=== PATIENT | male | born 1960 | race Hispanic/Latino ===

== ENCOUNTER → 2017-08-24 | Outpatient (CLI) | payer MEDICARE | LOC: RAH 10:00 | PROVIDERS: ATTEND Internal Medicine Gastroenterology | DX: R13.12 Dysphagia, oropharyngeal phase (principal); R63.3 Feeding difficulties; R10.33 Periumbilical pain | CPT/HCPCS: 74230; 92611 ==

== ENCOUNTER → 2018-12-30 | Outpatient (CLI) | payer MEDICARE ==
[~2018-12-30] MED LIST: ASPI-555 PO; ATOR40TA69 PO; GABA300C PO; LORA10TA7 PO; LOSA1TAB2 PO; METO25TA6 PO; POTA20TA12 PO; PROC10TA13 PO; SERT50TA12 PO; SITA100T12 PO; TICA90TA PO
== END | disposition home or self-care (01) ==
LOC: SHCH 13:09
PROVIDERS: ATTEND Internal Medicine Cardiovascular Disease
DX: I25.5 Ischemic cardiomyopathy (principal)
CPT/HCPCS: 93306

== ENCOUNTER → 2022-05-20 | Outpatient (CLI) | payer OTHER ==
[~2022-05-20] MED LIST changes: -ASPI-555 PO; +ASPI-556 PO; +LOSA-422 PO; -LOSA1TAB2 PO; +POTA-192 PO; -POTA20TA12 PO; +SERT-439 PO; -SERT50TA12 PO
== END | disposition home or self-care (01) ==
LOC: RAH 07:38
PROVIDERS: ATTEND Internal Medicine Gastroenterology
DX: K21.9 Gastro-esophageal reflux disease without esophagitis (principal); R10.10 Upper abdominal pain, unspecified
CPT/HCPCS: 76700

== ENCOUNTER → 2022-07-15 | Outpatient (CLI) | payer OTHER | END | disposition home or self-care (01) | LOC: SHCH 12:38 | PROVIDERS: ATTEND Internal Medicine Cardiovascular Disease | DX: I25.10 Atherosclerotic heart disease of native coronary artery without angina pectoris (principal); R20.2 Paresthesia of skin; Z95.5 Presence of coronary angioplasty implant and graft | CPT/HCPCS: 93880 ==

== ENCOUNTER → 2022-10-26 | Outpatient (CLI) | payer OTHER | END | disposition home or self-care (01) | LOC: RAH 07:41 | PROVIDERS: ATTEND Physical Medicine & Rehabilitation | DX: M47.22 Other spondylosis with radiculopathy, cervical region (principal) | CPT/HCPCS: 72141 ==

== ENCOUNTER 2024-06-24 02:13 | Emergency (ER) | payer OTHER, MEDICARE ==
[~2024-06-24] VITALS: Ht 167.6 cm; Wt 89.4 kg
[~2024-06-24 02:13] MED LIST changes: +PROC-3 PO; -PROC10TA13 PO
[2024-06-24 03:03] LABS: CREATININE 1.2 mg/dL (0.5-1.3); POTASSIUM 3.3 mmol/L (3.5-5.1)
[2024-06-24 03:09] LABS: BASOPHILS # (AUTO) 0.01 K/uL (0.00-0.20); BASOPHILS % (AUTO) 0.1 % (0.0-5.0); EOSINOPHILS % (AUTO) 1.2 % (0.0-8.0); HEMATOCRIT 42.7 % (42-54); IMMATURE GRANULOCYTE ABSOLUTE 0.02 K/uL (0-1); LYMPHOCYTES % (AUTO) 24.8 % (21.0-51.0); MEAN CORPUSCULAR HEMOGLOBIN 29.6 pg (27.0-33.0); MEAN CORPUSCULAR VOLUME 87.1 fL (79-99); MONOCYTES # (AUTO) 0.7 K/uL (0.1-1.0); MONOCYTES % (AUTO) 9.2 % (3.0-13.0); NEUTROPHILS # (AUTO) 5.2 K/uL (1.8-7.7); NEUTROPHILS % (AUTO) 64.5 % (40.0-77.0); PLATELET COUNT (AUTO) 249 K/uL (130-400); RED CELL DISTRIBUTION WIDTH 12.9 % (11.0-15.5)
[2024-06-24 03:12] LABS: B-TYPE NATRIURETIC PEPTIDE 39 pg/mL (0-100)
[2024-06-24 05:13] VITALS: BP 123/83; PULSE 62; RESP 16; TEMP 98.5; O2SAT 96
[2024-06-24 05:14] LABS: APPEARANCE,URINE CLEAR (CLEAR); BILIRUBIN,URINE NEGATIVE (NEGATIVE); COLOR,URINE LIGHT-YELLOW (YELLOW); GLUCOSE, URINE (UA) >=1000 mg/dL (NEGATIVE); KETONES,URINE NEGATIVE (NEGATIVE); LEUKOCYTE ESTERASE ,URINE NEGATIVE Leu/uL (NEGATIVE); MUCUS,URINE RARE LPF (None Seen); NITRATE,URINE NEGATIVE (NEGATIVE); OCCULT BLOOD,URINE NEGATIVE (NEGATIVE); PH,URINE 6.5 (5.0-8.0); PROTEIN,URINE NEGATIVE (NEGATIVE); SQUAMOUS EPITHELIAL CELL,UR RARE /HPF (0-2); UROBILINOGEN,URINE 0.2 mg/dL (0.2-1.0)
--- NOTE | 2024-06-24 06:27 | ERN ---
General Chief Complaint: Chest Pain Stated Complaint: HTN,CHEST PAIN Source: patient History of Present Illness Initial Comments Patient is a 64-year-old male with a past medical history of coronary artery disease and hypertension presenting to the emergency department with chest pain that started at approximately 1:30 a.m. today. The patient states he was sleeping when he was awoken by the chest pain. He does report similar episodes in the past. He is followed by medical insurance biller Dr. Pérez. Patient states he checked his blood pressure and it was 170 systolic so he decided to report to the ER for further evaluation. Allergies: Coded Allergies: No Known Drug Allergies (Verified Allergy, Unknown, 12/01/17) Home Meds Active Scripts Potassium Chloride (K-Dur/Klor-Con) 20 Meq Ertab, 20 MEQ PO DAILY, #30 TAB.EC 1 Refill Prov:SCARLETT GALICIA [facility] 12/03/17 Ticagrelor (Brilinta) 90 Mg Tablet, 90 MG PO BID, #60 TAB 2 Refills Prov:SCARLETT GALICIA [facility] 12/03/17 Losartan/Hydrochlorothiazide (Hyzaar 50-12.5 Tablet) 1 Each Tablet, 1 TAB PO DAILY, #30 TAB 3 Refills Prov:SCARLETT GALICIA [facility] 12/03/17 Atorvastatin Calcium (LIPITOR) 40 Mg Tablet, 40 MG PO HS, #30 TAB 2 Refills Prov:SCARLETT GALICIA [facility] 12/03/17 Reported Medications Aspirin (Aspir 81) 81 Mg Tablet.dr, 81 MG PO DAILY, TAB 12/01/17 Sertraline HCl (Sertraline HCl) 50 Mg Tablet, 50 MG PO DAILY, TAB 12/01/17 Metoprolol Tartrate (Metoprolol Tartrate) 25 Mg Tablet, 25 MG PO BID, TAB 12/01/17 Gabapentin (Neurontin) 300 Mg Capsule, 300 MG PO TID, CAP 12/01/17 Loratadine (Loratadine) 10 Mg Tablet, 10 MG PO DAILY, TAB 12/01/17 Sitagliptin Phosphate (Januvia) 100 Mg Tablet, 100 MG PO DAILY, TAB 12/01/17 Prochlorperazine Maleate (Prochlorperazine Maleate) 10 Mg Tablet, 10 MG PO TIDP PRN for DIZZINESS, TAB 7/11/18 Past Medical History Past Medical History: Diabetes-Type II, High Cholesterol, Hypertension Past Surgical History: Other Surgical History Other: NECK ROS Dictation CONSTITUTIONAL: Negative except for HPI HEAD/FACE: Negative except for HPI EENT: Negative except for HPI RESPIRATORY: Negative except for HPI GASTROINTESTINAL/ABDOMINAL: Negative except for HPI GENITOURINARY: Negative except for HPI MUSCULOSKELETAL: Negative except for HPI INTEGUMENTARY: Negative except for HPI NEUROLOGICAL/PSYCH: Negative except for HPI HEMATOLOGIC/LYMPHATIC: Negative except for HPI All Systems Negative, Except as noted above. 13 point review of systems assessed and all negative except for above. Physical Exam Physical Exam Dictation Vital Signs reviewed General Appearance: Alert, oriented x 3, no acute distress, well developed, nourished. Head and Face: non-traumatic. Eyes: PERRL, pink conjunctivas, eyelid no trauma, anterior chamber with arcus senilis. Ears: Pinnas intact and no signs of trauma or erythema ear canals clear and no discharge TM no erythema Nose: No discharge, no bleeding. Oropharynx: Mouth normal, tongue pink, pharynx clear,no erythema, tonsils no exudates, no abscesses noted, mucous membrane moist Neck: Supple, non-tender, no thyromegaly, no masses, no JVD, no bruits Breast:Deferred Chest:No tenderness, no crepitus, no paradoxical movement, no retractions Lungs:Clear, well-ventilated, symmetric, no rales, no wheezing, no rhonchi, no stridor, good breath sounds bilaterally Heart: Regular rate, regular rhythm, no murmur, no gallops Vascular: no peripheral edema, Abdomen: Soft, positive bowel sounds, nondistended, no guarding, nontender, no rebound, no masses no hepatomegaly, no splenomegaly, no Nation's sign, no hernias. Rectal: Deferred Genital: Deferred Neurological: Normal speech, motor function intact, sensory function intact Musculoskeletal: Neck nontender, full range of motion, back nontender, full range of motion, Extremities: nontender, full range of motion Skin: Color pink, dry, no turgor, no rash, no lacerations, no abrasions, no contusions. Lymphatic: Deferred Results Laboratory and Microbiology Lab and Micro Result Laboratory Tests Test 06/24/24 02:39 06/24/24 03:06 2/1/25 04:47 06/24/24 05:06 White Blood Count 8.0 K/uL (4.8-10.8) Red Blood Count 4.90 MIL/uL (4.50-6.20) Hemoglobin 14.5 g/dL (14.0-18.0) Hematocrit 42.7 % (42-54) Mean Corpuscular Volume 87.1 fL (79-99) Mean Corpuscular Hemoglobin 29.6 pg (27.0-33.0) Mean Corpuscular Hemoglobin Concent 34.0 g/dL (32.0-36.0) Red Cell Distribution Width 12.9 % (11.0-15.5) Platelet Count 249 K/uL (130-400) Mean Platelet Volume 10.5 fL (7.5-10.5) Immature Granulocyte % (Auto) 0.2 % (0-1) Neutrophils (%) (Auto) 64.5 % (40.0-77.0) Lymphocytes (%) (Auto) 24.8 % (21.0-51.0) Monocytes (%) (Auto) 9.2 % (3.0-13.0) Eosinophils (%) (Auto) 1.2 % (0.0-8.0) Basophils (%) (Auto) 0.1 % (0.0-5.0) Neutrophils # (Auto) 5.2 K/uL (1.8-7.7) Lymphocytes # (Auto) 2.0 K/uL (1.0-4.8) Monocytes # (Auto) 0.7 K/uL (0.1-1.0) Eosinophils # (Auto) 0.10 K/uL (0.00-0.70) Basophils # (Auto) 0.01 K/uL (0.00-0.20) Absolute Immature Granulocyte (auto 0.02 K/uL (0-1) Nucleated Red Blood Cells 0.0 % (0.0-0.19) Sodium Level 140 mmol/L (136-145) Potassium Level 3.3 mmol/L (3.5-5.1) L Chloride Level 103 mmol/L (101-111) Carbon Dioxide Level 33 mmol/L (21-32) H Blood Urea Nitrogen 16 mg/dL (7-18) Creatinine 1.2 mg/dL (0.5-1.3) Glomerular Filtration Rate Calc 67 mL/min (>90) Random Glucose 112 mg/dL (70-105) H Total Calcium 8.9 mg/dL (8.5-10.1) Total Creatine Kinase 101 U/L (21-232) # Troponin I High Sensitivity 10 ng/L (4-75) 10 ng/L (4-75) B-Type Natriuretic Peptide 39 pg/mL (0-100) Troponin I < 0.05 ng/mL (0.00-0.05) Urine Color LIGHT-YELLOW (YELLOW) Urine Appearance CLEAR (CLEAR) Urine pH 6.5 (5.0-8.0) Urine Specific [place] 1.027 (1.001-1.031) Urine Protein NEGATIVE mg/dL (NEGATIVE) Urine Glucose (UA) >=1000 mg/dL (NEGATIVE) H Urine Ketones NEGATIVE mg/dL (NEGATIVE) Urine Occult Blood NEGATIVE (NEGATIVE) Urine Nitrate NEGATIVE (NEGATIVE) Urine Bilirubin NEGATIVE mg/dL (NEGATIVE) Urine Urobilinogen 0.2 mg/dL (0.2-1.0) Urine Leukocyte Esterase NEGATIVE Aga/uL Urine RBC 6-10 /HPF (0-1) H Urine WBC 2-5 /HPF (0-1) H Urine Squamous Epithelial Cells RARE /HPF (0-2) Urine Bacteria None /HPF (None Seen) Labs Reviewed?: Yes MDM MDM: Differential diagnosis: ACS, pleurisy, pneumonia, pneumothorax There are no social concerns with this patient. Prescription drug management Prescriptions will include: None Medical management and examination interpretation discussions were had by me with other qualified healthcare professionals as indicated for the patient's care. ED Course Orders Procedure Category Date Status Time Vital Signs Per CPOE 06/24/24 Transmitted Routine 02:17 B-Type Natriuretic LAB 06/24/24 Complete Peptide 02:17 Chest 1vw RAD 06/24/24 Taken 02:17 12 Lead Ekg Tracing- EKG 06/24/24 Logged Technical 02:17 Oxygen By Nc/Pulse Ox CPOE 06/24/24 Transmitted 02:17 Maintain Iv CPOE 06/24/24 Transmitted 02:17 Iv Insertion CPOE 06/24/24 Transmitted 02:17 Cardiac Monitoring CPOE 06/24/24 Transmitted 02:17 Pulse Oximetry With CPOE 06/24/24 Transmitted Vs And Prn 02:17 Cbc With Differential LAB 2/1/25 Complete 02:17 Activity: Br W/Brp CPOE 06/24/24 Transmitted With Assist 02:17 Creatine Kinase, Total LAB 06/24/24 Complete 02:17 Troponin I High LAB 06/24/24 Complete Sensitivity 02:17 Troponin Poc Order LAB 06/24/24 Complete Only 02:17 Bedside Troponin-I LAB.ER 06/24/24 In Process (Poc) 02:17 Basic Metabolic Panel LAB 06/24/24 Complete 02:17 Troponin I High LAB 06/24/24 Complete Sensitivity 04:58 Urinalysis LAB 06/24/24 Complete W/Microscopic 04:47 Vital Signs Date Time Temp Pulse Resp B/P (MAP) Pulse Ox O2 Delivery O2 Flow Rate FiO2 06/24/24 05:13 98.4 62 16 123/83 96 Room Air* 0 21 06/24/24 03:21 65 17 130/76 97 Room Air* 0 06/24/24 02:15 96.8 70 16 136/79 97 Room Air HEART Score Response (Comments) Value History: Low suspicion (0) 0 EKG: Normal 0 Age: 45-65yrs (+1) 1 Risk Factors: 1-2 risk factors (+1) 1 Initial Troponin: Normal limit (0) 0 HEART Score Risk: Low Risk for MACE (1-3) Total 2 DX & DISP Disposition: Discharge Departure Impression: Primary Impression: Non-cardiac chest pain Condition: Stable Additional Instructions: Your blood work today is unremarkable. Your cardiac enzymes are negative. Your chest x-ray does not show any acute abnormalities. Your EKG does not show any evidence of a heart attack. Please follow up with your primary care doctor and medical insurance biller for further evaluation. Return to the ER for any new or worsening symptoms. Referrals: SELF,REFERRAL (PCP) Time of Disposition: 06:26 I have reviewed the case, and I agree with, Diagnosis and Plan I performed the substantive portion of the visit. I have reviewed and perso good made and approve the management plan that is documented in the note by myself or the ALLI. I acknowledge for responsibility for the patient's management plan. REBEKAH CAMARA Jun 24, 2024 06:26
--- NOTE | 2024-06-24 06:37 | EKG ---
[facility] Test Date: 2024-06-24 Test Time: 02:52:17 Pat Name: ALICE ODELL Department: ED Room: Gender: M Pricing Lead: [id number] : 1960 Requested By: MARIA ISABEL MEJIA Order Number: [id number] Reading MD: Varinder Angulo Measurements Intervals [place] Rate: 57 P: 8 WI: 184 QRS: -53 QRSD: 117 T: -3 QT: 446 QTc: 435 Interpretive Statements Sinus rhythm Nonspecific IVCD with LAD Inferior infarct, old Compared to ECG 12/02/2017 04:43:05 Intraventricular conduction delay now present Left-axis deviation no longer present Myocardial infarct finding still present Electronically Signed On 06-24-2024 17:17:58 DIRECTOR OPERATING ROOM by Varinder Angulo Please click the below link to view image of tracing.
--- NOTE | 2024-06-24 08:54 | HMCIMG ---
Exam Type: CHEST 1VW Clinical Information: CHEST PAIN Comparison: None Findings: The lungs are clear of infiltrates. The heart is enlarged. Bony and soft tissue structures of the chest wall are unremarkable. IMPRESSION: Cardiomegaly. Clear lungs.
== END 2024-06-24 06:46 | disposition home or self-care (01) ==
LOC: EDH 02:13
DX: R07.89 Other chest pain (principal); E11.9 Type 2 diabetes mellitus without complications; E78.00 Pure hypercholesterolemia, unspecified; I10 Essential (primary) hypertension; Z79.02 Long term (current) use of antithrombotics/antiplatelets; Z79.82 Long term (current) use of aspirin; Z79.84 Long term (current) use of oral hypoglycemic drugs; Z79.899 Other long term (current) drug therapy
CPT/HCPCS: 36415; 71045; 80048; 81001; 82550; 83880; 84484; 85025; 93005; 99285

== ENCOUNTER → 2024-09-07 | Outpatient (CLI) | payer OTHER, MEDICARE ==
[2024-09-07 08:23] LABS: BASOPHILS # (AUTO) 0.02 K/uL (0.00-0.20); BASOPHILS % (AUTO) 0.2 % (0.0-5.0); EOSINOPHILS # (AUTO) 0.09 K/uL (0.00-0.70); EOSINOPHILS % (AUTO) 1.1 % (0.0-8.0); HEMATOCRIT 44.6 % (42-54); IMMATURE GRANULOCYTE ABSOLUTE 0.02 K/uL (0-1); LYMPHOCYTES # (AUTO) 1.7 K/uL (1.0-4.8); LYMPHOCYTES % (AUTO) 19.8 % (21.0-51.0); MEAN CORPUSCULAR HEMOGLOBIN 29.5 pg (27.0-33.0); MEAN CORPUSCULAR HGB CONC 33.2 g/dL (32.0-36.0); MONOCYTES # (AUTO) 0.6 K/uL (0.1-1.0); MONOCYTES % (AUTO) 7.1 % (3.0-13.0); NEUTROPHILS # (AUTO) 6.1 K/uL (1.8-7.7); NEUTROPHILS % (AUTO) 71.6 % (40.0-77.0); PLATELET COUNT (AUTO) 161 K/uL (130-400); RED BLOOD CELL COUNT(AUTO) 5.01 MIL/uL (4.50-6.20); RED CELL DISTRIBUTION WIDTH 13.7 % (11.0-15.5); WHITE BLOOD COUNT (AUTO) 8.6 K/uL (4.8-10.8)
[2024-09-07 08:38] LABS: CREATININE 0.9 mg/dL (0.5-1.3); POTASSIUM 3.7 mmol/L (3.5-5.1)
== END | disposition home or self-care (01) ==
LOC: LAB 07:56
PROVIDERS: ATTEND Urology
DX: R31.29 Other microscopic hematuria (principal)
CPT/HCPCS: 36415; 80048; 85025

== ENCOUNTER → 2024-09-15 | Outpatient (CLI) | payer OTHER, MEDICARE ==
[~2024-09-15] MED LIST changes: +IOHEXOL 350 MG/ML 100ML INFUS..BTL IV ONE
--- NOTE | 2024-09-15 11:24 | HMCIMG ---
Exam Type: CT ABDOMEN AND PELVIS WITH ORAL AND IV CONTRAST Clinical Information: Other microscopic hematuria Comparison: Contrast: 75 cc's Omnipaque 350 IV, no complications or adverse reactions. Technique: Routine helical scanning at 5mm collimation through the abdomen and pelvis was performed after oral and before and after IV contrast administration. Arterial, venous, and 7 minutes renal delay postcontrast series were obtained for evaluation of renal excretion and collecting systems and urinary bladder. Surface rendering three-dimensional reconstructions of the urinary tract performed as well. CT Dose Index (CTDI): mGy Findings: Findings: The lung bases are clear. The kidneys are unremarkable except for small bilateral simple cysts. No evidence of nephro or ureterolithiasis is found. No hydronephrosis or ureteral dilatation is seen. The urinary bladder is also unremarkable in. Post contrast. No stones are identified. There is no obstruction. No tumor. The stomach is unremarkable. It shows no distention. No evidence of ulceration is seen. There is no inflammation. No gastric wall thickening is noted to suggest tumor. The liver is unremarkable. It shows no focal masses. There is no intra or extrahepatic bile duct dilatation. The spleen shows normal size and attenuation. It is not enlarged. The pancreas shows normal appearance without masses, atrophy, or calcifications, or duct prominence. There is no peripancreatic fluid. There is cholelithiasis. There is no evidence of gallbladder wall thickening or pericholecystic stranding.to suggest acute or chronic cholecystitis. The adrenals are normal. No masses are seen. The small and large bowel and pelvic viscera are unremarkable. The appendix is unremarkable. There is no retroperitoneal lymphadenopathy or lymphadenopathy elsewhere throughout the abdomen and pelvis. The aorta and inferior vena cava and other vascular structures are unremarkable. The bony structures unremarkable for the patient's age. The prostate is significantly enlarged. The abdominopelvic wall soft tissue structures and muscular compartments are unremarkable. IMPRESSION: NEGATIVE CT SCAN OF THE ABDOMEN AND PELVIS WITH ORAL AND IV CONTRAST. Diverticulosis. Automated exposure control and adaptive statistical iterative reconstruction were utilized as dose reduction techniques.
== END | disposition home or self-care (01) ==
LOC: RAH 07:22
PROVIDERS: ATTEND Urology
DX: K80.20 Calculus of gallbladder without cholecystitis without obstruction (principal); R31.29 Other microscopic hematuria; N40.0 Benign prostatic hyperplasia without lower urinary tract symptoms; K57.90 Diverticulosis of intestine, part unspecified, without perforation or abscess without bleeding
CPT/HCPCS: 74178; Q9967

== ENCOUNTER → 2025-01-29 | Outpatient (CLI) | payer OTHER, MEDICAID ==
[~2025-01-29] MED LIST changes: -IOHEXOL 350 MG/ML 100ML INFUS..BTL IV ONE
[2025-01-29 08:11] LABS: ASPARTATE AMINOTRANSFERASE 17.0 U/L (10-37); CREATININE 0.8 mg/dL (0.5-1.3); GLOMERULAR FILTR. RATE CALC 98.0 mL/min (>90); GLUCOSE,RANDOM 104.0 mg/dL (70-105); SODIUM SERUM 138.0 mmol/L (136-145); TOTAL PROTEIN, SERUM 7.0 g/dL (6.0-8.3); UREA NITROGEN, BLOOD 20.0 mg/dL (7-18)
--- NOTE | 2025-01-29 15:21 | HMCSR ---
APPROVED REPORT EXAM: Two-dimensional and M-mode echocardiogram with Doppler and color Doppler. INDICATION ICD: I10, R42 2D Dimensions RVDd4.1 cmLVEF(%)40.7 (>50%)LVED Vol(simp.)141.7 mL IVSd0.9 (0.7-1.1cm)FS(%)20 %LVES Vol(simp.)64.4 mL LVDd5.4 (3.8-5.6cm)LA (2D)4.6 (1.6-4.0cm)LVEF(%, simp.)55 % PWd0.9 (0.7-1.1cm)Ao Root(2D)3.3 (2.0-3.7cm) IVSs1.5 cmLVOT diam2.2 (1.8-2.4cm) LVDs4.3 (2.5-4.0cm) PWs0.7 cm M-Mode Dimensions EPSS1.3 cm LA (MM)4.6 (1.6-4.0cm) Ao Root(MM)2.8 (2.0-3.7cm) Aortic Valve AoV Vmax1.5 m/Prashant Peak GR8.8 mmHgLVOT Vmax1.0 m/s AoV VTI0.3 mAo Mean GR5.3 mmHgLVOT VTI0.26 m CIERA (VMAX)2.56 cm2AVA (VTI) 3.1 cm2 Mitral Valve MV E Vmax78.5 cm/sDECEL Objz628 ms MV A Vmax98.7 cm/sP 1/2 T84 ms E/A ratio0.8MVA (PHT)2.6 cm2 TDI E/E' Xtrodq89.1E/E' Rlhpxfn56.7 Medial E' Peak V5.56 cm/sLateral E' Peak V4.70 cm/s Pulmonary Valve PV Vmax1.2 m/sPV VTI0.25 mPV Mean GR3.1 mmHg PV Peak GR5.3 mmHg Tricuspid Valve TR Vmax2.2 m/sRAP (EST) 8 rxPbNHUK13.7 mmHg TR Peak GR20.7 mmHg Left Ventricle The left ventricle is normal size. There is normal LV segmental wall motion. There is normal left iris tricular wall thickness. LVEF is 50-55%. The left ventricular diastolic function is normal. Right Ventricle The right ventricle is borderline dilated. The right ventricular systolic function is normal. Atria The left atrium size is normal. The right atrium is borderline dilated. Aortic Valve The aortic valve is normal in structure. Color-flow jet noted across aortic valve may be indicative o f trivial to mild AI versus possible perimembranous VSD There is no aortic valvular stenosis. Mitral Valve The mitral valve is normal in structure. There is mild mitral valve regurgitation noted. There is no mitral valve stenosis. Tricuspid Valve The tricuspid valve is normal in structure. There is trace of tricuspid valve regurgitation noted. Pulmonic Valve The pulmonary valve is normal in structure. There is no pulmonic valvular regurgitation. Great Vessels The aortic root is normal in size. The IVC is normal in size and collapses <50% with inspiration. Pericardium There is no pericardial effusion. Other Information Quality : Adequate Conclusion LVEF is 50-55%. There is normal LV segmental wall motion.
== END | disposition home or self-care (01) ==
LOC: RAH 07:42
PROVIDERS: ATTEND Family Medicine
DX: I34.0 Nonrheumatic mitral (valve) insufficiency (principal); I10 Essential (primary) hypertension; R42 Dizziness and giddiness
CPT/HCPCS: 36415; 80053; 93306

== ENCOUNTER → 2025-02-01 | Outpatient (CLI) | payer OTHER, MEDICAID ==
[~2025-02-01] MED LIST changes: +IOHEXOL 350 MG/ML 100ML INFUS..BTL IV ONE
--- NOTE | 2025-02-01 11:46 | HMCIMG ---
INDICATION: LLQ PAIN. COMPARISON: None. TECHNIQUE: After obtaining the patient's consent, CT images were obtained without and with non-ionic intravenous contrast material. The study was also obtained with oral contrast.. Numerous low-radiation dose strategies were employed including AEC (Automatic Exposure Control) and individualized BMI-based low dose scan protocols. The exam was performed on a CT scanner that is compliant with the NEMA XR-29 Smart Dose Standard. DICOM Radiation Dose Structured Reporting capability and Dose Check Standard are also features of this scanner. RADIATION DOSE ESTIMATE: CTDIvol (mGy): 28.10 \ DLP (mGy-cm): 1596.00 FINDINGS: LOWER THORAX: Lung bases are clear. Normal cardiac size without pericardial effusion. LIVER: No focal hepatic abnormality. BILIARY: No calcified gallstones. No intra or extrahepatic biliary ductal dilatation. PANCREAS: Normal. No lesion, fluid collection, ductal dilatation, or acute inflammation. SPLEEN: Normal. No enlargement or focal lesion. STOMACH/DUODENUM: Unremarkable. ADRENALS: Normal. No mass or enlargement. KIDNEYS: Normal. No mass, obstruction, or nephrolithiasis. Are small cortical cysts seen in both kidneys. BOWEL/MESENTERY: Normal. No visible mass, obstruction, or bowel wall thickening. There are scattered diverticulosis mostly in the descending and sigmoid colon with no evidence of associated diverticulitis. The bowel isn't well-opacified with oral contrast. AORTA/VASCULAR: No aneurysm. . Mild atherosclerotic disease. PERITONEUM/RETROPERITONEUM: Normal. No mass, ascites or free air. LYMPH NODES: No pathologically enlarged lymph nodes. URINARY BLADDER: Normal. No visible focal wall thickening, lesion, or calculus. PELVIC ORGANS: The prostate and seminal vesicle appears to be normal. There is no mass or free fluid seen in the pelvis. BONES: No acute osseous abnormality. ABDOMINAL WALL/SOFT TISSUES: Normal. No mass or hernia. IMPRESSION: No acute process seen in the CT of the abdomen and pelvis with and without intravenous and oral contrast.
== END | disposition home or self-care (01) ==
LOC: RAH 08:45
PROVIDERS: ATTEND Internal Medicine Gastroenterology
DX: K57.30 Diverticulosis of large intestine without perforation or abscess without bleeding (principal); N28.1 Cyst of kidney, acquired; I25.10 Atherosclerotic heart disease of native coronary artery without angina pectoris; R10.814 Left lower quadrant abdominal tenderness
CPT/HCPCS: 74178; Q9967

== ENCOUNTER → 2025-02-12 | Emergency (ER) | payer OTHER, MEDICAID ==
[~2025-02-12] VITALS: Ht 167.6 cm; Wt 80.7 kg
[~2025-02-12] MED LIST changes: +ASPIRIN 81MG CHEW TAB PO SCH; -IOHEXOL 350 MG/ML 100ML INFUS..BTL IV ONE
--- NOTE | 2025-02-12 02:08 | NUR ---
REPORT TO USHA SMALLWOOD
--- NOTE | 2025-02-12 02:28 | ERN ---
ED Note History of Present Illness Stated Complaint: CP, HTN Chief Complaint: Multiple Complaints Time Seen by MD: 02:21 Time Seen by Midlevel: 02:21 Dictation: The patient is a 65-year-old male with a history of CAD, hypertension who presents to the emergency department with complaints of intermediate left-sided chest pain onset three days ago. Patient reports pain last about a 3-4 hours. Patient also been complaining of elevated blood pressure. Reports highest as in the 140 systolic. Denies any headache or dizziness. Allergies: Coded Allergies: No Known Drug Allergies (Verified Allergy, Unknown, 12/01/17) Home Meds Active Scripts Potassium Chloride (K-Dur/Klor-Con) 20 Meq Ertab, 20 MEQ PO DAILY, #30 TAB.EC 1 Refill Prov:SCARLETT GALICIA [facility] 12/03/17 Ticagrelor (Brilinta) 90 Mg Tablet, 90 MG PO BID, #60 TAB 2 Refills Prov:SCARLETT GALICIA [facility] 12/03/17 Losartan/Hydrochlorothiazide (Hyzaar 50-12.5 Tablet) 1 Each Tablet, 1 TAB PO DAILY, #30 TAB 3 Refills Prov:SCARLETT GALICIA [facility] 12/03/17 Atorvastatin Calcium (LIPITOR) 40 Mg Tablet, 40 MG PO HS, #30 TAB 2 Refills Prov:SCARLETT GALICIA [facility] 12/03/17 Reported Medications Aspirin (Aspir 81) 81 Mg Tablet.dr, 81 MG PO DAILY, TAB 12/01/17 Sertraline HCl (Sertraline HCl) 50 Mg Tablet, 50 MG PO DAILY, TAB 12/01/17 Metoprolol Tartrate (Metoprolol Tartrate) 25 Mg Tablet, 25 MG PO BID, TAB 12/01/17 Gabapentin (Neurontin) 300 Mg Capsule, 300 MG PO TID, CAP 12/01/17 Loratadine (Loratadine) 10 Mg Tablet, 10 MG PO DAILY, TAB 12/01/17 Sitagliptin Phosphate (Januvia) 100 Mg Tablet, 100 MG PO DAILY, TAB 12/01/17 Prochlorperazine Maleate (Prochlorperazine Maleate) 10 Mg Tablet, 10 MG PO TIDP PRN for DIZZINESS, TAB 12/01/17 Past Medical History Past Medical History: Diabetes-Type II, High Cholesterol, Hypertension Surgical History: Other Surgical History Other: NECK, HERNIA, CARDIAC STENTS RN Note Reviewed/Agreed w/PFSH: Yes Review of System Dictation Constitutional: Negative for fever,chills, and weight loss Eyes: Negative for injury, pain,redness, and discharge ENT: Negative for injury,pain or swelling Cardiovascular: Negative for palpitations, and edema positive for chest pain Respiratory: Negative for shortness of breath, cough, and wheezing, Abdomen/GI: Negative for abdominal pain, nausea, vomiting, diarrhea, and constipation Back: Negative for injury and pain : Negative for injury, bleeding and discharge MS/Extremity: Negative for injury and deformity Skin: Negative for rash, and discoloration Neuro: Negative for headache, weakness, numbness, tingling, and seizure Psych: Negative for suicide ideation, homicidal ideation, and hallucinations Initial Vital Sign VS Vital Signs Date Time Temp Pulse Resp B/P (MAP) Pulse Ox O2 Delivery O2 Flow Rate FiO2 02/12/25 02:00 97.9 75 18 138/62 98 Room Air 02/12/25 03:00 0 21 Physical Exam Dictation Vital Signs reviewed General Appearance: Alert, oriented x 3, no acute distress, well developed, nourished. Head and Face: non-traumatic. Eyes: PERRL, pink conjunctivas, eyelid no trauma, anterior chamber with arcus senilis. Ears: Pinnas intact and no signs of trauma or erythema ear canals clear and no discharge TM no erythema Nose: No discharge, no bleeding. Oropharynx: Mouth normal, tongue pink. pharynx clear,no erythema, tonsils no exudates, no abscesses noted, mucous membrane moist Neck: Supple, non-tender, no thyromegaly, no masses, no JVD, no bruits Breast:Deferred Chest:No tenderness, no crepitus, no paradoxical movement, no retractions Lungs:Clear, well-ventilated, symmetric, no rales, no wheezing, no rhonchi, no stridor, good breath sounds bilaterally Heart: Regular rate, regular rhythm, no murmur, no gallops Vascular: no peripheral edema, Abdomen: Soft, positive bowel sounds, nondistended, no guarding, nontender, no rebound, no masses no hepatomegaly, no splenomegaly, no Nation's sign, no hernias. Rectal: Deferred Genital: Deferred Neurological: Normal speech, motor function intact, sensory function intact Musculoskeletal: Neck nontender, full range of motion, back nontender, full range of motion, Extremities: nontender, full range of motion Skin: Color pink, dry, no turgor, no rash, no lacerations, no abrasions, no contusions. Lymphatic: Deferred Results (Laboratory/Radiology) Laboratory/Radiology Laboratory Tests Test 02/12/25 02:43 White Blood Count 10.6 K/uL (4.8-10.8) Red Blood Count 5.08 MIL/uL (4.50-6.20) Hemoglobin 15.5 g/dL (14.0-18.0) Hematocrit 45.5 % (42-54) Mean Corpuscular Volume 89.6 fL (79-99) Mean Corpuscular Hemoglobin 30.5 pg (27.0-33.0) Mean Corpuscular Hemoglobin Concent 34.1 g/dL (32.0-36.0) Red Cell Distribution Width 12.6 % (11.0-15.5) Platelet Count 193 K/uL (130-400) Mean Platelet Volume 10.3 fL (7.5-10.5) Immature Granulocyte % (Auto) 0.4 % (0-1) Neutrophils (%) (Auto) 77.4 % (40.0-77.0) H Lymphocytes (%) (Auto) 13.2 % (21.0-51.0) L Monocytes (%) (Auto) 8.1 % (3.0-13.0) Eosinophils (%) (Auto) 0.8 % (0.0-8.0) Basophils (%) (Auto) 0.1 % (0.0-5.0) Neutrophils # (Auto) 8.2 K/uL (1.8-7.7) H Lymphocytes # (Auto) 1.4 K/uL (1.0-4.8) Monocytes # (Auto) 0.9 K/uL (0.1-1.0) Eosinophils # (Auto) 0.08 K/uL (0.00-0.70) Basophils # (Auto) 0.01 K/uL (0.00-0.20) Absolute Immature Granulocyte (auto 0.04 K/uL (0-1) Nucleated Red Blood Cells 0.0 % (0.0-0.19) Urine Color LIGHT-YELLOW (YELLOW) Urine Appearance CLEAR (CLEAR) Urine pH 5.0 (5.0-8.0) Urine Specific [place] 1.008 (1.001-1.031) Urine Protein NEGATIVE mg/dL (NEGATIVE) Urine Glucose (UA) NEGATIVE mg/dL (NEGATIVE) Urine Ketones NEGATIVE mg/dL (NEGATIVE) Urine Occult Blood SMALL (NEGATIVE) H Urine Nitrate NEGATIVE (NEGATIVE) Urine Bilirubin NEGATIVE mg/dL (NEGATIVE) Urine Urobilinogen 0.2 mg/dL (0.2-1.0) Urine Leukocyte Esterase NEGATIVE Aga/uL Urine RBC 0-1 /HPF (0-1) Urine WBC 0-1 /HPF (0-1) Urine Bacteria None /HPF (None Seen) Sodium Level 140 mmol/L (136-145) Potassium Level 3.6 mmol/L (3.5-5.1) Chloride Level 103 mmol/L (101-111) Carbon Dioxide Level 30 mmol/L (21-32) Blood Urea Nitrogen 15 mg/dL (7-18) Creatinine 0.8 mg/dL (0.5-1.3) Glomerular Filtration Rate Calc 98 mL/min (>90) Random Glucose 147 mg/dL (70-105) H Total Calcium 9.2 mg/dL (8.5-10.1) Total Creatine Kinase 57 U/L (21-232) # Troponin I High Sensitivity 8 ng/L (4-75) Labs Reviewed?: Yes ED Course ED Course Orders Procedure Category Date Status Time Vital Signs Per CPOE 02/12/25 Transmitted Routine 02:02 Chest 1vw RAD 02/12/25 Resulted 02:02 12 Lead Ekg Tracing- EKG 02/12/25 Complete Technical 02:02 Oxygen By Nc/Pulse Ox CPOE 02/12/25 Transmitted 02:02 Maintain Iv CPOE 02/12/25 Transmitted 02:02 Iv Insertion CPOE 02/12/25 Transmitted 02:02 Cardiac Monitoring CPOE 02/12/25 Transmitted 02:02 Pulse Oximetry With CPOE 02/12/25 Transmitted Vs And Prn 02:02 Cbc With Differential LAB 02/12/25 Complete 02:02 Activity: Br W/Brp CPOE 02/12/25 Transmitted With Assist 02:02 Creatine Kinase, Total LAB 02/12/25 Complete 02:02 Troponin I High LAB 02/12/25 Complete Sensitivity 02:02 Urinalysis Profile LAB 02/12/25 Complete 02:02 Basic Metabolic Panel LAB 02/12/25 Complete 02:02 Aspirin 81mg Chew Tab PHA 02/12/25 In Process (Aspirin 81mg Chew 09:00 Current Medications Medications (Trade) Dose Ordered Sig/Brad Route PRN Reason Start Time Stop Time Status Last Admin Dose Admin Aspirin (Aspirin 81mg Chew Tab) 81 mg DAILY PO 02/12/25 09:00 03/14/25 08:59 Vital Signs Date Time Temp Pulse Resp B/P (MAP) Pulse Ox O2 Delivery O2 Flow Rate FiO2 02/12/25 04:01 98.1 78 18 128/70 98 Room Air* 0 21 02/12/25 03:00 98.1 81 18 135/75 98 Room Air* 0 21 02/12/25 02:00 97.9 75 18 138/62 98 Room Air Medical Decision Making MDM This is a 65-year-old male with multiple medical problems presented to the emergency room with complaints of left-sided precordial chest pain. He stated that that has been going on for a few days. He denied any diaphoresis radiation to arm or neck. He does give history of reproducible pain. Denied nausea vomitings gastroesophageal reflux symptoms. Vital signs are stable. Patient was signed out to me 3:00 a.m. I reviewed the labs CBC is with a normal limits BNP 7 is with a normal limits urinalysis is unremarkable troponins are 8 I had a long discussion with the patient and his and updated them on labs and offered to repeat the 2nd set of labs in a few hours. 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 Rationale: Tests considered and ordered secondary to shared decision making include: Previous outside records reviewed: Old ER visits. Risk of complication and/or morbidity or mortality of patient management: None Medications-Per medication reconciliation Need for hospitalization: Patient does not meet criteria for hospitalization. Need for emergency major/minor surgery: No There are no social concerns with this patient. Prescription drug management Prescriptions will include symptomatic care Patient's prior external medical records from other ER visits were reviewed by me as indicated. Prior testing and results from previous visits were reviewed. Prior tests were taken into account with medical decision making and resource utilization, independent historian/historians were used to obtain complete medical history. I independently interpreted the test that were performed, results were reviewed by me and considered findings on radiology if ordered. Medical management and examination interpretation discussions were had by me with other qualified healthcare professionals as indicated for the patient's care. Problem List Problem List: (1) Non-cardiac chest pain DX & DISP Disposition: Discharge Departure Impression: Primary Impression: Non-cardiac chest pain Ruled Out: Anemia, Gastroenteritis, Abdominal pain, Nausea & vomiting Condition: Stable Additional Instructions: Patient and the caregiver have been informed of all the diagnostic tests and the imaging conducted during the today's visit to the emergency room and has verbalized understanding of the results I have personally reviewed and interpreted all diagnostic exams performed here in the ER today as well as the vital signs documented by the nursing staff. The patient is now being discharged to home and should follow up with the primary care physician or the specialist as directed by the ER staff. Follow-up with primary care provider in 1 to 2 days. Take medications as directed here in the emergency room. Okay to continue home medications unless otherwise discussed during your visit in the emergency room today. Return to your nearest emergency room if symptoms worsen or if there is no improvement. Call 911 if you need immediate assistance. Take Tylenol or Motrin [id number] as needed and if no contraindications are present. Increase oral hydration. A wound culture or urine culture was ordered here in the emergency room department please follow-up with primary care provider and advise them to get repeat ports from our facility. If you had any Eliu wrap/splints that were applied here, please do not remove them until you see your primary care or specialty. Referrals: ARCHANA INFANTE MD (PCP) JONATHAN CRISTINA Feb 12, 2025 02:28 DENISE HINTON MD Feb 12, 2025 03:41
[2025-02-12 02:58] LABS: IMMATURE GRANULOCYTE ABSOLUTE 0.04 K/uL (0-1); NUCLEATED RED BLOOD CELLS 0.0 % (0.0-0.19); PLATELET COUNT (AUTO) 193 K/uL (130-400); RED BLOOD CELL COUNT(AUTO) 5.08 MIL/uL (4.50-6.20); RED CELL DISTRIBUTION WIDTH 12.6 % (11.0-15.5); WHITE BLOOD COUNT (AUTO) 10.6 K/uL (4.8-10.8)
[2025-02-12 03:02] LABS: ADD UA MICROSCOPIC YES; APPEARANCE,URINE CLEAR (CLEAR); GLUCOSE, URINE (UA) NEGATIVE (NEGATIVE); LEUKOCYTE ESTERASE ,URINE NEGATIVE Leu/uL (NEGATIVE); NITRATE,URINE NEGATIVE (NEGATIVE); OCCULT BLOOD,URINE SMALL (NEGATIVE)
[2025-02-12 03:07] LABS: CREATININE 0.8 mg/dL (0.5-1.3); GLOMERULAR FILTR. RATE CALC 98.0 mL/min (>90); GLUCOSE,RANDOM 147.0 mg/dL (70-105); SODIUM SERUM 140.0 mmol/L (136-145); UREA NITROGEN, BLOOD 15.0 mg/dL (7-18)
[2025-02-12 03:13] LABS: CREATINE KINASE, TOTAL 57.0 U/L (21-232)
[2025-02-12 04:01] VITALS: BP 128/70; PULSE 78; RESP 18; TEMP 98; O2SAT 98
--- NOTE | 2025-02-12 04:15 | HMCIMG ---
EXAM: CR Chest, 1 view CLINICAL HISTORY: Chest pain. COMPARISON: Chest radiograph dated 06/24/2024. FINDINGS: The lungs show no infiltrates or other acute findings. No pleural effusion or pneumothorax. The cardiomediastinal silhouette is within normal limits. No acute osseous abnormality. Mildly elevated right hemidiaphragm. IMPRESSION: No acute cardiopulmonary process is evident. Compared to the prior study, there is no significant interval change. /[place]
--- NOTE | 2025-02-12 04:21 | EKG ---
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
== END ==
LOC: EDH 01:59
DX: R07.89 Other chest pain (principal); K52.9 Noninfective gastroenteritis and colitis, unspecified; R11.2 Nausea with vomiting, unspecified; E11.9 Type 2 diabetes mellitus without complications; E78.00 Pure hypercholesterolemia, unspecified; I10 Essential (primary) hypertension; Z79.82 Long term (current) use of aspirin; Z79.84 Long term (current) use of oral hypoglycemic drugs; Z79.899 Other long term (current) drug therapy; Z95.5 Presence of coronary angioplasty implant and graft
CPT/HCPCS: 36415; 71045; 80048; 81001; 82550; 84484; 85025; 93005; 99285

== ENCOUNTER → 2025-03-01 | Outpatient (CLI) | payer OTHER, MEDICAID ==
[~2025-03-01] MED LIST changes: -ASPIRIN 81MG CHEW TAB PO SCH; +IOHEXOL 350 MG/ML 100ML INFUS..BTL IV ONE
--- NOTE | 2025-03-01 11:31 | HMCIMG ---
CT HEAD/BRAIN W/WO CONTRAST CLINICAL HISTORY: Dizziness and giddiness patient. TECHNIQUE: CT head was performed pre and post intravenous administration of IV contrast. 50 cc of Omnipaque 300 was used for intravenous contrast. CT was performed with one or more of the following dose reduction techniques: automated exposure control, adjustment of the mA and/or kV according to patient size, or use of iterative reconstruction technique CONTRAST: 50 ml of Omnipaque 350. COMPARISON: Prior CT of the head from 02/17/2010 is available. FINDINGS: Sulci and hemispheres have a normal appearance. Ventricular system is nondilated. Basal cisterns are patent. There is no mass, bleed, shift, or acute territorial infarct identified. No enhancing lesions are seen above or below the tentorium. Bone windows show the calvarium is intact. Bony orbits, visualized paranasal sinuses and mastoids are clear. The contrast study demonstrate no enhancing lesion. IMPRESSION: Brain within normal limits with and without intravenous contrast..
--- NOTE | 2025-03-13 15:13 | HMCIMG ---
EXAM: CT Neck with and without Intravenous Contrast. CLINICAL HISTORY: Dizziness and giddiness TECHNIQUE: Axial computed tomography images of the neck with and without intravenous contrast. Sagittal and coronal reformatted images were generated. CONTRAST: None. Images were obtained with and without intravenous contrast COMPARISON: None provided. FINDINGS: PHARYNX: Unremarkable appearance of the nasopharynx, oropharyx, and hypopharynx. No pharyngeal mucosal based mass lesions. LARYNX: Normal appearance of the larynx. Unremarkable epiglottis. RETROPHARYNGEAL SPACE: The retropharyngeal soft tissues appear within normal limits. SALIVARY GLANDS: No salivary gland abnormality evident. Unremarkable appearance of the parotid, submandibular, and sublingual glands. LYMPH NODES: No significant lymphadenopathy. THYROID: The thyroid gland is unremarkable. No nodule is evident. BONES: No aggressive appearing osseous lesion. No acute osseous abnormality. IMPRESSION: Unremarkable CT neck /[place]
== END | disposition home or self-care (01) ==
LOC: RAH 09:38
PROVIDERS: ATTEND Family Medicine
DX: R59.9 Enlarged lymph nodes, unspecified (principal); R42 Dizziness and giddiness
CPT/HCPCS: 70470; 70492; Q9967